=== PATIENT | male | born 1965 | race African-American/Black ===

== ENCOUNTER 2020-12-17 12:42 | Inpatient (IN) | payer BC ==
[2020-12-17 16:50] VITALS: BMI 27.9
[2020-12-17] MEDS ORDERED: MAGNESIUM HYDROX 2400MG/30ML ORAL SUSPENSION 30 ML CUP PO PRN (17:06)
[2020-12-17] MEDS ORDERED: MAGNESIUM CITRATE 300 ML BOTTLE PO PRN (17:06)
[2020-12-17] MEDS ORDERED: MAG HYDROX/AL HYDROX/SIMETH 30 ML UNIT-DOSE CUP PO PRN (17:06)
[2020-12-17] MEDS ORDERED: BISMUTH SUBSALICYLATE 524 MG/30 ML PO PRN (17:06)
[2020-12-17] MEDS ORDERED: MENTHOL/PHENOL 1 EACH UD MM PRN (17:06)
[2020-12-17] MEDS ORDERED: ONDANSETRON *ODT* 4 MG TABLET SL PRN (17:06)
[2020-12-17] MEDS ORDERED: METHOCARBAMOL 500 MG TABLET PO PRN (17:06)
[2020-12-17] MEDS ORDERED: hydrOXYzine PAMOATE 25 MG CAPSULE (FP) PO PRN (17:06)
[2020-12-17] MEDS ORDERED: IBUPROFEN 400 MG TABLET (FP) PO PRN (17:06)
[2020-12-17] MEDS ORDERED: ACETAMINOPHEN 325 MG TABLET (FP) PO PRN ×2 (17:06)
[2020-12-17] MEDS: MELATONIN 5 MG TABLETS PO SCH (23:11)
[2020-12-17] MEDS: THIAMINE HCL 100 MG TABLET (FP) PO SCH (23:11)
[2020-12-18] MEDS: PRENATAL VITAMINS W/ FOLIC ACID TABLET (FP) PO SCH (10:19)
[2020-12-18 11:53] LABS: HEMATOCRIT 42.4 % (35.4-49); HEMOGLOBIN 13.9 GM/dL (11.7-16.9); MCH 29.2 pg (25.7-33.7); MCHC 32.8 g/dl (32.0-35.9); MEAN CELL VOLUME 88.9 fl (80-96); MEAN PLT VOLUME 11.3 fl (7.5-11.1); PLATELET COUNT 159 10^3/uL (134-434); RBC 4.77 M/mm3 (4.00-5.60); RDW 13.8 % (11.9-15.9); WHITE BLOOD COUNT 5.5 K/mm3 (4.0-10.0)
[2020-12-18 12:18] LABS: CALCIUM 9.3 mg/dL (8.5-10.1)
[2020-12-18 12:19] LABS: ALBUMIN 3.6 g/dl (3.4-5.0); BLOOD UREA NITROGEN 21.9 mg/dL (7-18)
[2020-12-18 12:22] LABS: CREATININE 1.6 mg/dL (0.55-1.3)
[2020-12-18 12:23] LABS: BILIRUBIN,TOTAL 0.3 mg/dL (0.2-1)
[2020-12-18 12:25] LABS: TOT PROT 7.1 g/dl (6.4-8.2)
[2020-12-18] MEDS ORDERED: diazePAM 5 MG TABLET PO PRN (15:18)
[2020-12-18] MEDS ORDERED: methaDONE HCL 10 MG TABLET (FOR DETOX USE ONLY) PO ONE (15:23)
[2020-12-18] MEDS: amLODIPine BESYLATE 10 MG TABLET (FP) PO SCH (15:39)
[2020-12-18] MEDS: diazePAM 5 MG TABLET PO SCH ×2 (17:31→23:01)
[2020-12-18] MEDS ORDERED: cloNIDine HCL 0.1 MG TABLET PO ONE (18:23)
[2020-12-18] MEDS: MELATONIN 5 MG TABLETS PO SCH (23:01)
[2020-12-18] MEDS: THIAMINE HCL 100 MG TABLET (FP) PO SCH (23:01)
[2020-12-19] MEDS: diazePAM 5 MG TABLET PO SCH ×3 (06:02→22:02)
[2020-12-19] MEDS ORDERED: methaDONE HCL 10 MG TABLET (FOR DETOX USE ONLY) PO ONE (10:00)
[2020-12-19] MEDS: PRENATAL VITAMINS W/ FOLIC ACID TABLET (FP) PO SCH (10:12)
[2020-12-19] MEDS: amLODIPine BESYLATE 10 MG TABLET (FP) PO SCH (10:12)
[2020-12-19 10:30] LABS: CREATININE 1.6 mg/dL (0.55-1.3)
[2020-12-19] MEDS: LISINOPRIL 10 MG TABLET PO SCH (13:36)
[2020-12-19] MEDS: MELATONIN 5 MG TABLETS PO SCH (22:02)
[2020-12-19] MEDS: THIAMINE HCL 100 MG TABLET (FP) PO SCH (22:02)
[2020-12-19 22:52] LABS: HIV INTERPRETATION NEGATIVE (NEGATIVE)
[2020-12-20] MEDS: diazePAM 5 MG TABLET PO SCH ×2 (05:52→17:37)
[2020-12-20] MEDS ORDERED: methaDONE HCL 10 MG TABLET (FOR DETOX USE ONLY) PO ONE (10:00)
[2020-12-20] MEDS: PRENATAL VITAMINS W/ FOLIC ACID TABLET (FP) PO SCH (10:03)
[2020-12-20] MEDS: LISINOPRIL 10 MG TABLET PO SCH (10:03)
[2020-12-20] MEDS: amLODIPine BESYLATE 10 MG TABLET (FP) PO SCH (10:03)
[2020-12-20] MEDS ORDERED: MASKS NR ONE (17:38)
[2020-12-20] MEDS: THIAMINE HCL 100 MG TABLET (FP) PO SCH (22:01)
[2020-12-20] MEDS: MELATONIN 5 MG TABLETS PO SCH (22:01)
[2020-12-21] MEDS ORDERED: diazePAM 5 MG TABLET PO ONE (06:00)
[2020-12-21 09:20] VITALS: BP 148/78; PULSE 61; TEMP 98
== END 2020-12-21 09:59 | disposition home or self-care (01) | DRG 897 ==
LOC: YASAS 12:42 → UNDOADMIN 18:18 → Y6N 18:18 → Y3N 18:49
PROVIDERS: ADMIT Allergy & Immunology; ATTEND Allergy & Immunology
PROC: HZ2ZZZZ Detoxification Services for Substance Abuse Treatment (ICD-10-PCS; principal; 2020-12-17)
DX: F11.23 Opioid dependence with withdrawal (principal); F14.20 Cocaine dependence, uncomplicated; F10.230 Alcohol dependence with withdrawal, uncomplicated; F13.230 Sedative, hypnotic or anxiolytic dependence with withdrawal, uncomplicated; I25.10 Atherosclerotic heart disease of native coronary artery without angina pectoris; I10 Essential (primary) hypertension; I25.2 Old myocardial infarction; Z91.013 Allergy to seafood
CPT/HCPCS: 36415; 80053; 82565; 84520; 85027; 86780; 87389; 93005; 93010; C9803; J0735; Q0162; U0003; U0005

== ENCOUNTER 2021-11-15 13:36 | Inpatient (IN) | payer OTHER ==
[2021-11-15] MEDS ORDERED: ACETAMINOPHEN 325 MG TABLET (FP) PO PRN (14:46)
[2021-11-15] MEDS ORDERED: IBUPROFEN 400 MG TABLET (FP) PO PRN (14:46)
[2021-11-15] MEDS ORDERED: IBUPROFEN 600 MG TABLET (FP) PO PRN (14:46)
[2021-11-15] MEDS ORDERED: MAGNESIUM CITRATE 300 ML BOTTLE PO PRN (14:46)
[2021-11-15] MEDS ORDERED: NICOTINE 10 MG CARTRIDGE (INHALER) IH PRN (14:46)
[2021-11-15] MEDS ORDERED: BISMUTH SUBSALICYLATE 524 MG/30 ML PO PRN (14:46)
[2021-11-15] MEDS ORDERED: MAG HYDROX/AL HYDROX/SIMETH 30 ML UNIT-DOSE CUP PO PRN (14:46)
[2021-11-15] MEDS ORDERED: MAGNESIUM HYDROX 2400MG/30ML ORAL SUSPENSION 30 ML CUP PO PRN (14:46)
[2021-11-15] MEDS ORDERED: DICYCLOMINE HCL 10 MG CAPSULE PO PRN (14:46)
[2021-11-15] MEDS ORDERED: ONDANSETRON *ODT* 4 MG TABLET SL PRN (14:46)
[2021-11-15] MEDS ORDERED: LOPERAMIDE HCL 2 MG CAPSULE PO PRN (14:46)
[2021-11-15] MEDS ORDERED: BENZOCAINE/MENTHOL (CHLORASEPTIC ) LOZENGE MM PRN (14:46)
[2021-11-15 15:54] VITALS: BMI 27.1
[2021-11-15] MEDS: LISINOPRIL 10 MG TABLET PO SCH (17:32)
[2021-11-15] MEDS: chlordiazePOXIDE HCL 25 MG CAPSULE PO PRN (17:33)
[2021-11-15] MEDS: hydrOXYzine PAMOATE 25 MG CAPSULE (FP) PO SCH ×2 (18:51→22:55)
[2021-11-15] MEDS: PRENATAL VITAMINS W/ FOLIC ACID TABLET (FP) PO SCH (18:51)
[2021-11-15] MEDS ORDERED: cloNIDine HCL 0.1 MG TABLET PO ONE (19:01)
[2021-11-15] MEDS: chlordiazePOXIDE HCL 25 MG CAPSULE PO SCH (22:55)
[2021-11-15] MEDS: THIAMINE HCL 100 MG TABLET (FP) PO SCH (22:55)
[2021-11-15] MEDS: MELATONIN 5 MG TABLETS PO SCH (22:55)
[2021-11-15] MEDS: METHOCARBAMOL 500 MG TABLET PO PRN (22:56)
[2021-11-16] MEDS: hydrOXYzine PAMOATE 25 MG CAPSULE (FP) PO SCH ×5 (06:35→22:43)
[2021-11-16] MEDS: chlordiazePOXIDE HCL 25 MG CAPSULE PO SCH ×4 (06:35→22:44)
[2021-11-16] MEDS: PRENATAL VITAMINS W/ FOLIC ACID TABLET (FP) PO SCH (10:30)
[2021-11-16] MEDS: LISINOPRIL 10 MG TABLET PO SCH (10:30)
[2021-11-16 12:04] LABS: HEMATOCRIT 40.6 % (35.4-49); HEMOGLOBIN 13.5 GM/dL (11.7-16.9); MCHC 33.3 g/dl (32.0-35.9); MEAN CELL VOLUME 89.8 fl (80-96); MEAN PLT VOLUME 10.4 fl (7.5-11.1); PLATELET COUNT 163 10^3/uL (134-434); RBC 4.52 M/mm3 (4.00-5.60); RDW 13.2 % (11.9-15.9); WHITE BLOOD COUNT 5.4 K/mm3 (4.0-10.0)
[2021-11-16 12:58] LABS: ALBUMIN 3.3 g/dl (3.4-5.0); CALCIUM 9.1 mg/dL (8.5-10.1)
[2021-11-16 12:59] LABS: BLOOD UREA NITROGEN 15.8 mg/dL (7-18)
[2021-11-16 13:01] LABS: CREATININE 1.4 mg/dL (0.55-1.3)
[2021-11-16 13:03] LABS: BILIRUBIN,TOTAL 0.2 mg/dL (0.2-1); TOT PROT 6.5 g/dl (6.4-8.2)
[2021-11-16 13:04] LABS: HIV INTERPRETATION NEGATIVE (NEGATIVE)
[2021-11-16] MEDS: amLODIPine BESYLATE 10 MG TABLET (FP) PO SCH (16:03)
[2021-11-16] MEDS: MELATONIN 5 MG TABLETS PO SCH (22:43)
[2021-11-16] MEDS: THIAMINE HCL 100 MG TABLET (FP) PO SCH (22:43)
[2021-11-16] MEDS: METHOCARBAMOL 500 MG TABLET PO PRN (22:44)
[2021-11-17] MEDS: hydrOXYzine PAMOATE 25 MG CAPSULE (FP) PO SCH ×5 (06:35→22:57)
[2021-11-17] MEDS: chlordiazePOXIDE HCL 25 MG CAPSULE PO PRN (06:35)
[2021-11-17] MEDS: chlordiazePOXIDE HCL 25 MG CAPSULE PO SCH ×4 (06:50→22:57)
[2021-11-17] MEDS: BUDESONIDE/FORMETEROL FUMARATE 80/4.5 mcg INHALER IH SCH ×2 (10:35→22:58)
[2021-11-17] MEDS: PRENATAL VITAMINS W/ FOLIC ACID TABLET (FP) PO SCH (10:36)
[2021-11-17] MEDS: amLODIPine BESYLATE 10 MG TABLET (FP) PO SCH (10:36)
[2021-11-17] MEDS: LISINOPRIL 10 MG TABLET PO SCH (10:36)
[2021-11-17] MEDS: METHOCARBAMOL 500 MG TABLET PO PRN (18:00)
[2021-11-17] MEDS: MELATONIN 5 MG TABLETS PO SCH (22:57)
[2021-11-17] MEDS: THIAMINE HCL 100 MG TABLET (FP) PO SCH (22:57)
[2021-11-18] MEDS ORDERED: chlordiazePOXIDE HCL 10 MG CAPSULE PO PRN
[2021-11-18] MEDS: hydrOXYzine PAMOATE 25 MG CAPSULE (FP) PO SCH ×5 (06:29→23:32)
[2021-11-18] MEDS: chlordiazePOXIDE HCL 10 MG CAPSULE PO SCH ×3 (06:30→18:28)
[2021-11-18] MEDS: PRENATAL VITAMINS W/ FOLIC ACID TABLET (FP) PO SCH (10:16)
[2021-11-18] MEDS: BUDESONIDE/FORMETEROL FUMARATE 80/4.5 mcg INHALER IH SCH ×2 (10:16→23:32)
[2021-11-18] MEDS: amLODIPine BESYLATE 10 MG TABLET (FP) PO SCH (10:16)
[2021-11-18] MEDS: LISINOPRIL 10 MG TABLET PO SCH (10:16)
[2021-11-18] MEDS: ACETAMINOPHEN 325 MG TABLET (FP) PO PRN (17:42)
[2021-11-18] MEDS: THIAMINE HCL 100 MG TABLET (FP) PO SCH (23:32)
[2021-11-18] MEDS: MELATONIN 5 MG TABLETS PO SCH (23:32)
[2021-11-19] MEDS: chlordiazePOXIDE HCL 10 MG CAPSULE PO SCH (00:12)
[2021-11-19] MEDS ORDERED: chlordiazePOXIDE HCL 10 MG CAPSULE PO SCH (05:00)
[2021-11-19] MEDS: hydrOXYzine PAMOATE 25 MG CAPSULE (FP) PO SCH ×2 (06:22→09:41)
[2021-11-19] MEDS: ACETAMINOPHEN 325 MG TABLET (FP) PO PRN (06:22)
[2021-11-19 09:36] VITALS: BP 166/98; PULSE 75; TEMP 97.1
[2021-11-19] MEDS: BUDESONIDE/FORMETEROL FUMARATE 80/4.5 mcg INHALER IH SCH (09:40)
[2021-11-19] MEDS: LISINOPRIL 10 MG TABLET PO SCH (09:40)
[2021-11-19] MEDS: amLODIPine BESYLATE 10 MG TABLET (FP) PO SCH (09:40)
[2021-11-19] MEDS: PRENATAL VITAMINS W/ FOLIC ACID TABLET (FP) PO SCH (09:41)
[2021-11-20] MEDS ORDERED: chlordiazePOXIDE HCL 10 MG CAPSULE PO ONE (05:00)
== END 2021-11-19 10:23 | disposition home or self-care (01) | DRG 775 ==
LOC: YASAS 13:36 → Y3N 16:18
PROVIDERS: ADMIT Allergy & Immunology; ATTEND Surgery
PROC: HZ2ZZZZ Detoxification Services for Substance Abuse Treatment (ICD-10-PCS; principal; 2021-11-15)
DX: F10.230 Alcohol dependence with withdrawal, uncomplicated (principal); F12.20 Cannabis dependence, uncomplicated; I11.0 Hypertensive heart disease with heart failure; I50.9 Heart failure, unspecified; Z89.022 Acquired absence of left finger(s); Z91.013 Allergy to seafood
CPT/HCPCS: 36415; 80053; 85027; 86780; 87389; C9803-CS; J0735; U0003; U0005